=== PATIENT | female | born 1975 | race Caucasian/White ===

== ENCOUNTER 2017-01-23 15:54 | Emergency (ER) | payer MEDICAID ==
[2017-01-23 16:03] VITALS: BP 130/76
[2017-01-23] MEDS ORDERED: guaiFENesin/Dextromethorphan 100-10 MG/5 ML Soln 5 ML Cup PO ONE (16:28)
--- NOTE | 2017-01-23 16:57 | EDM.PDOC ---
ED HISTORY OF PRESENT ILLNESS - General Chief Complaint: ENT Problem Stated Complaint: DEEP, VANESSA COUGH Time Seen by Provider: 01/23/17 16:30 Source of Information: Reports: Patient History Limitations: Reports: No limitations - History of Present Illness INITIAL COMMENTS - FREE TEXT/NARRATIVE: Pt states that she woke up today with constant coughing. States that she did multiple breathing treatments with no relief. c/o congestion as well Symptom Onset Date: 01/23/17 Timing/Duration: Reports: Getting worse Severity: mild Improves with: Reports: None - Related Data Allergies/ADRs: Allergies Allergy/AdvReac Type Severity Reaction Status Date / Time amoxicillin [From Augmentin] Allergy Cannot Verified 01/23/17 16:04 Remember clavulanic acid Allergy Cannot Verified 01/23/17 16:04 [From Augmentin] Remember levofloxacin [From Levaquin] Allergy Cannot Verified 01/23/17 16:04 Remember Home Meds: Home Meds Albuterol [Proventil HFA] 1 puff PO PRN 01/23/17 [History] Vits #90/Iron Fum/FA [ Formula] 1 tab PO DAILY 01/23/17 [ History] Past Medical History Gastrointestinal History: Reports: GERD 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: - Past Surgical History HEENT Surgical History: Reports: Oral surgery Female Surgical History: Reports: section, Other (see below) Other Female Surgeries/Procedures: hemrrhoid removed Musculoskeletal Surgical History: Reports: Other (see below) Other Musculoskeletal Surgeries/Procedures:: right thumb Social & Family History - Family History Family Medical History: Noncontributory - Tobacco Use Smoking Status *Q: Current Every Day Smoker Years of Tobacco use: 20 Packs/Tins Daily: 1 - Caffeine Use Caffeine Use: Reports: Coffee - Recreational Drug Use Recreational Drug Use: No - Living Situation & Occupation Living situation: Reports: ED ROS GENERAL - Review of Systems Review Of Systems: See Below HEENT: Reports: Rhinitis, Sinus problem Respiratory: Reports: Cough ED EXAM, GENERAL - Physical Exam Exam: See Below Exam Limited By: No limitations General Appearance: alert, WD/WN, no apparent distress Ears: normal external exam, normal canal, hearing grossly normal Ear Exam: left ear: TM dull (effusion mild) Nose: normal inspection, no blood, clear rhinorrhea, other (enalrge turnbinate on left) Throat/Mouth: Normal inspection, Normal lips, Normal teeth, Normal gums, Normal voice, No airway compromise, Other (erythema to throat) Respiratory/Chest: no respiratory distress, normal breath sounds, no accessory muscle use, chest non-tender, wheezing (minimal) Cardiovascular: normal peripheral pulses, regular rate, rhythm, no edema, no gallop, no JVD, no murmur, no rub Neurological: alert, oriented, CN II-XII intact, normal cognition, normal gait, normal reflexes, no motor/sensory deficits Course - Vital Signs Last Recorded V/S: Last Vital Signs Temp 98.7 F 01/23/17 16:00 Pulse 94 01/23/17 16:00 Resp 18 01/23/17 16:00 BP 130/76 01/23/17 16:00 Pulse Ox 92 L 01/23/17 16:00 - Orders/Labs/Meds Orders: Active Orders 24 hr Category Date Time Status CULTURE STREP A CONFIRMATION [RM] Stat Lab 01/23/17 16:19 Results STREP SCRN A RAPID W CULT CONF [RM] Stat Lab 01/23/17 16:19 Results Meds: Medications Discontinued Medications Generic Name Dose Route Start Last Admin Trade Name Benq PRN Reason Stop Dose Admin Guaifenesin/Phenylephrine HCl 10 ml 01/23/17 16:28 01/23/17 16:34 Robitussin Dm PO 01/23/17 16:29 10 ml ONETIME ONE Administration - Re-Assessments/Exams Free Text/Narrative Re-Assessment/Exam: 01/23/17 16:53 Coughing decreased after medication. Pt states that she feels better. Departure - Departure Time of Disposition: 16:54 Disposition: Home, Self-Care 01 Condition: good Clinical Impression: Bronchitis, Sinus congestion Instructions: Sinusitis, Adult, [id number], Acute Bronchitis Forms: ED Department Discharge Additional Instructions: Take the claritin daily for allergies. Take the dextromethorphan and guaifenisen for cough as needed. Follow up in the clinic if not getting better in 1 week. Return for worsening symptoms. - My Orders Last 24 Hours: My Active Orders 01/23/17 16:19 CULTURE STREP A CONFIRMATION [RM] Stat STREP SCRN A RAPID W CULT CONF [RM] Stat - Assessment/Plan Last 24 Hours: My Active Orders 01/23/17 16:19 CULTURE STREP A CONFIRMATION [RM] Stat STREP SCRN A RAPID W CULT CONF [RM] Stat
== END 2017-01-23 17:00 | disposition home or self-care (01) ==
LOC: DL.ED 15:54
DX: J40 Bronchitis, not specified as acute or chronic (principal); K21.9 Gastro-esophageal reflux disease without esophagitis; F17.210 Nicotine dependence, cigarettes, uncomplicated; Z98.890 Other specified postprocedural states; Z88.1 Allergy status to other antibiotic agents
CPT/HCPCS: 87081; 87430; 99283; A9270

== ENCOUNTER 2020-09-05 11:57 | Emergency (ER) | payer MEDICAID ==
[2020-09-05 12:15] VITALS: BP 182/104; PULSE 81
--- NOTE | 2020-09-05 13:01 | CR ---
PROCEDURE INFORMATION: Exam: XR Ribs, Bilateral Exam date and time: 09/05/2020 12:27 PM Age: 44 years old Clinical indication: Chest wall pain; Left; Additional info: B/l rib pain S/P fall TECHNIQUE: Imaging protocol: XR of the bilateral ribs. Views: 3 views. COMPARISON: CR Chest 2V 06/09/2015 1:32 PM FINDINGS: Bones/joints: Healed bilateral rib fractures. No acute fracture identified. Soft tissues: Normal. IMPRESSION: No acute findings.
[2020-09-05] MEDS ORDERED: Lidocaine 5% Oint 35.44 GM Tube TOP ONE (13:07)
--- NOTE | 2020-09-05 13:10 | EDM.PDOC ---
Scribed by Joana Yeboah 09/05/20 1228 for Andres Yuan MD ED HPI GENERAL MEDICAL PROBLEM - General Chief Complaint: Chest Pain Stated Complaint: left breast pain Time Seen by Provider: 09/05/20 12:19 Source of Information: Reports: Patient, RN, RN Notes Reviewed History Limitations: Reports: No Limitations - History of Present Illness INITIAL COMMENTS - FREE TEXT/NARRATIVE: Patient presents to ED by POV with complaint of left breast tenderness. Patient states that this started 4 days ago. Patient states that a few weeks ago she fell on a car battery and injured her right side. Patient is unsure if the 2 events are related. Patient states that she thinks she may have pulled a muscle. She did not notice the left chest wall pain until the right sided pain began to improve. Patient rates pain at a 4/10. Patient has not taken anything for pain. Onset: Gradual Duration: Getting Worse Location: Reports: Chest (left) Quality: Reports: Ache Severity: Moderate Improves with: Reports: None Worsens with: Reports: None Associated Symptoms: Reports: No Other Symptoms Left Breast Pain Score (Numeric/FACES): 4 - Related Data Allergies Allergy/AdvReac Type Severity Reaction Status Date / Time amoxicillin [From Augmentin] Allergy Cannot Verified 09/05/20 12:10 Remember clavulanic acid Allergy Cannot Verified 09/05/20 12:10 [From Augmentin] Remember levofloxacin [From Levaquin] Allergy Cannot Verified 09/05/20 12:10 Remember Home Meds: Home Meds Albuterol [Proventil HFA] 1 puff PO PRN 01/23/17 [History] Vit 90/Iron Fum/Folic [ Formula] 1 tab PO DAILY 01/23/17 [History] Past Medical History Gastrointestinal History: Reports: GERD 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 ED EXAM, GENERAL - Physical Exam Exam: See Below Exam Limited By: No Limitations General Appearance: Alert, WD/WN, No Apparent Distress Nose: Normal Inspection Throat/Mouth: Normal Inspection, Normal Voice, No Airway Compromise Head: Atraumatic, Normocephalic Neck: Normal Inspection, Supple, Non-Tender, Full Range of Motion Respiratory/Chest: No Respiratory Distress, Lungs Clear, Normal Breath Sounds, No Accessory Muscle Use, Other (left chest wall tenderness at middle anterior and lateral chest wall, no visible swelling, bruising, or deformity). No: Crackles, Rales, Rhonchi, Wheezing, Stridor Cardiovascular: Normal Peripheral Pulses, Regular Rate, Rhythm GI/Abdominal: Normal Bowel Sounds, Soft, Non-Tender, No Organomegaly, No Distention, No Abnormal Bruit, No Mass Back Exam: Normal Inspection, Full Range of Motion. No: CVA Tenderness (L), CVA Tenderness (R) Extremities: Normal Inspection, Normal Range of Motion, Non-Tender, Normal Capillary Refill, No Pedal Edema Neurological: Alert, Oriented, CN II-XII Intact, Normal Cognition, Normal Gait, No Motor/Sensory Deficits Psychiatric: Normal Mood Skin Exam: Warm, Dry, Intact, Normal Color, No Rash Lymphatic: No Adenopathy Course - Vital Signs Last Recorded V/S: Last Vital Signs Temp 98.1 F 09/05/20 12:14 Pulse 81 09/05/20 12:14 Resp 16 09/05/20 12:14 BP 182/104 H 09/05/20 12:14 Pulse Ox 98 09/05/20 12:14 - Orders/Labs/Meds Orders: Active Orders 24 hr Category Date Time Status Lidocaine 5% Med 09/05/20 13:07 Once 30 gm TOP ONETIME ONE - Radiology Interpretation Free Text/Narrative:: [facility] [place] [facility] Final Radiology Report Call: [phone] assistance Online chat: [email or web address] Name: LAUREN CARNES Age: 44Years F Date: 09/05/2020 SSN: -- : [id number] Study: CR RIBS 3V WO CHEST BI Requesting Physician: ANDRES YUAN Images: 4 Addl Studies: Provided Clinical History: B/L rib pain s/p fall Contrast: Contrast Medium: Contrast Amount: Contrast Method: CONFIDENTIALITY STATEMENT This report is intended only for use by the referring physician, and only in accordance with law. If you received this in error, call [phone]. Page 1 of 1 PROCEDURE INFORMATION: Exam: XR Ribs, Bilateral Exam date and time: 09/05/2020 12:27 PM Age: 44 years old Clinical indication: Chest wall pain; Left; Additional info: B/l rib pain S/P fall TECHNIQUE: Imaging protocol: XR of the bilateral ribs. Views: 3 views. COMPARISON: CR Chest 2V 06/09/2015 1:32 PM FINDINGS: Bones/joints: Healed bilateral rib fractures. No acute fracture identified. Soft tissues: Normal. IMPRESSION: No acute findings. Thank you for allowing us to participate in the care of your patient. Dictated and Authenticated by: Shin Leo MD 09/05/2020 1:01 PM Central Time ([place] & [place]) Departure - Departure Time of Disposition: 13:07 Disposition: Home, Self-Care 01 Condition: Good Clinical Impression: Multiple fractures of ribs, left side, initial encounter for closed fracture Instructions: Rib Fracture, [id number] Forms: ED Department Discharge Additional Instructions: Apply a thin layer of Lidocaine 5% ointment every 4 hours as needed for pain. Use over the counter Ibuprofen (Motrin/Advil) 200mg: Take 3 tablets (600mg) by mouth with food every 6 hours as needed for chest wall/rib pain. Sepsis Event Note (ED) - Evaluation Sepsis Screening Result: No Definite Risk - Focused Exam Vital Signs: Vital Signs Temp Pulse Resp BP Pulse Ox 09/05/20 12:14 98.1 F 81 16 182/104 H 98 - My Orders Last 24 Hours: My Active Orders 09/05/20 13:07 Lidocaine 5% 30 gm TOP ONETIME ONE - Assessment/Plan Last 24 Hours: My Active Orders 09/05/20 13:07 Lidocaine 5% 30 gm TOP ONETIME ONE I have read and agree with the documentation that has been completed regarding this visit. By signing this record, I attest that the documentation was c ompleted in my physical presence and is an accurate record of the encounter.
== END 2020-09-05 13:16 | disposition home or self-care (01) ==
LOC: DL.ED 11:57
DX: S22.42XA Multiple fractures of ribs, left side, initial encounter for closed fracture (principal); S20.212A Contusion of left front wall of thorax, initial encounter; Z88.1 Allergy status to other antibiotic agents; W20.8XXA Other cause of strike by thrown, projected or falling object, initial encounter
CPT/HCPCS: 71110; 99283; A9270

== ENCOUNTER 2020-11-10 18:35 | Emergency (ER) | payer MEDICAID ==
[2020-11-10] MEDS ORDERED: Ondansetron 4 MG Tab.DIS PO ONE (18:36)
[2020-11-10 19:01] VITALS: BP 151/112; PULSE 95
[2020-11-10] MEDS ORDERED: Sodium Chloride 0.9% 1,000 ML IV ONE (19:10)
[2020-11-10] MEDS ORDERED: Ondansetron 4 MG/2 ML SDV IVPUSH ONE (19:11)
--- NOTE | 2020-11-10 19:17 | EDM.PDOC ---
ED HPI GENERAL MEDICAL PROBLEM - General Chief Complaint: Abdominal Pain Stated Complaint: STOMACH PAIN, VOMITING, DIAHRREA, CHILLS Time Seen by Provider: 11/10/20 19:08 Source of Information: Reports: Patient History Limitations: Reports: No Limitations - History of Present Illness INITIAL COMMENTS - FREE TEXT/NARRATIVE: This 44 yo female patient reports to the ED with a 2 day history of nausea/vomiting, diarrhea and abdominal pain. The patient has been attempting to control her symptoms at home, but her symptoms have been getting worse. The patient denies any recent drug or alcohol use. The patient reports her had a Vasectomy, so she does not believe she is . Onset Date: 11/08/20 Duration: Constant, Getting Worse Location: Reports: Abdomen Quality: Reports: Ache, Dull Severity: Moderate Improves with: Reports: None Worsens with: Reports: None Context: Reports: Other Associated Symptoms: Reports: Nausea/Vomiting Abdominal Pain Score (Numeric/FACES): 7 - Related Data Allergies Allergy/AdvReac Type Severity Reaction Status Date / Time amoxicillin [From Augmentin] Allergy Cannot Verified 11/10/20 18:57 Remember clavulanic acid Allergy Cannot Verified 11/10/20 18:57 [From Augmentin] Remember levofloxacin [From Levaquin] Allergy Cannot Verified 11/10/20 18:57 Remember Home Meds: Home Meds Albuterol [Proventil HFA] 1 puff PO Q4H PRN 01/23/17 [History] Past Medical History Gastrointestinal History: Reports: 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: - Infectious Disease History Infectious Disease History: Reports: None - Past Surgical History HEENT Surgical History: Reports: Oral Surgery Female Surgical History: Reports: Section, Other (See Below) Other Female Surgeries/Procedures: hemrrhoid removed Musculoskeletal Surgical History: Reports: Other (See Below) Other Musculoskeletal Surgeries/Procedures:: right thumb Social & Family History - Family History Family Medical History: No Pertinent Family History - Tobacco Use Tobacco Use Status *Q: Never Tobacco User Second Hand Smoke Exposure: No - Caffeine Use Caffeine Use: Reports: None - Recreational Drug Use Recreational Drug Use: No - Living Situation & Occupation Living situation: Reports: ED ROS GENERAL - Review of Systems Review Of Systems: Comprehensive ROS is negative, except as noted in HPI. ED EXAM, GI/ABD - Physical Exam Exam: See Below Exam Limited By: No Limitations General Appearance: Alert, WD/WN, Moderate Distress Eyes: Bilateral: Normal Appearance, EOMI Ears: Normal External Exam, Normal Canal, Hearing Grossly Normal, Normal TMs Nose: Normal Inspection, Normal Mucosa, No Blood Throat/Mouth: Normal Inspection, Normal Lips, Normal Teeth, Normal Gums, Normal Oropharynx, Normal Voice, No Airway Compromise Head: Atraumatic, Normocephalic Neck: Normal Inspection, Supple, Non-Tender, Full Range of Motion Respiratory/Chest: No Respiratory Distress, Lungs Clear, Normal Breath Sounds, No Accessory Muscle Use, Chest Non-Tender Cardiovascular: Normal Peripheral Pulses, Regular Rate, Rhythm, No Edema, No Gallop, No JVD, No Murmur, No Rub GI/Abdominal Exam: Normal Bowel Sounds, Soft, Non-Tender, No Organomegaly, No Distention, No Abnormal Bruit, No Mass, Pelvis Stable (Female) Exam: Deferred Rectal (Female) Exam: Deferred Back Exam: Normal Inspection, Full Range of Motion, NT Extremities: Normal Inspection, Normal Range of Motion, Non-Tender, Normal Capillary Refill, No Pedal Edema Neurological: Alert, Oriented, CN II-XII Intact, Normal Cognition, Normal Gait, Normal Reflexes, No Motor/Sensory Deficits Psychiatric: Normal Affect, Normal Mood Skin Exam: Warm, Dry, Intact, Normal Color, No Rash Lymphatic: No Adenopathy Course - Vital Signs Last Recorded V/S: Last Vital Signs Temp 36.1 C 11/10/20 18:57 Pulse 95 11/10/20 18:57 Resp 20 11/10/20 18:57 BP 151/112 H 11/10/20 18:57 Pulse Ox 100 11/10/20 18:57 - Orders/Labs/Meds Orders: Active Orders 24 hr Category Date Time Status Sodium Chloride 0.9% [Normal Saline] 1,000 ml Med 11/10/20 19:10 Ordered IV .BOLUS Medication Orders Sodium Chloride (Normal Saline) 1,000 mls @ 500 mls/hr IV .BOLUS ONE Stop: 11/10/20 21:09 Last Admin: 11/10/20 19:22 Dose: 500 mls/hr Documented by: CRYSTAL Labs: Laboratory Tests 11/10/20 11/10/20 11/10/20 Range/Units 19:06 19:06 19:12 WBC 10.2 H (5.0-10.0) 10^3/uL RBC 5.77 H (4.2-5.4) 10^6/uL Hgb 17.8 H (12.0-16.0) g/dL Hct 48.9 H (37.0-47.0) % MCV 84.7 (80-100) fL MCH 30.8 (27.0-34.0) pg MCHC 36.4 H (33.0-35.0) g/dL Plt Count 181 (150-450) 10^3/uL Neut % (Auto) 84.6 H (42.2-75.2) % Lymph % (Auto) 7.8 L (20.5-50.1) % [place] % (Auto) 7.1 (2-8) % Eos % (Auto) 0.4 L (1.0-3.0) % Baso % (Auto) 0.1 (0.0-1.0) % Sodium 136 (136-145) mmol/L Potassium 3.7 (3.5-5.1) mmol/L Chloride 96 L (98-107) mmol/L Carbon Dioxide 22 (21-32) mmol/L Anion Gap 21.7 H (7-13) mEq/L BUN 11 (7-18) mg/dL Creatinine 0.86 (0.55-1.02) mg/dL Est Cr Clr Drug Dosing 75.12 mL/min Estimated GFR (MDRD) > 60 BUN/Creatinine Ratio 12.8 (No establ ref range) Glucose 158 H (74-99) mg/dL Calcium 9.4 (8.5-10.1) mg/dL Total Bilirubin 0.5 (0.2-1.0) mg/dL AST 26 (15-37) U/L ALT 47 (14-59) U/L Alkaline Phosphatase 89 (46-116) U/L Total Protein 8.1 (6.4-8.2) g/dL Albumin 4.4 (3.4-5.0) g/dL Globulin 3.7 Albumin/Globulin Ratio 1.2 Lipase 90 (73-393) U/L Urine Color (YELLOW) Urine Appearance (CLEAR) Urine pH (5.0-9.0) Ur Specific [place] (1.005-1.030) Urine Protein (NEGATIVE) Urine Glucose (UA) (NEGATIVE) Urine Ketones (NEGATIVE) Urine Occult Blood (NEGATIVE) Urine Nitrite (NEGATIVE) Urine Bilirubin (NEGATIVE) Urine Urobilinogen (0.2-1.0) mg/dL Ur Leukocyte Esterase (NEGATIVE) Urine RBC /HPF Urine WBC (0-5/HPF) /HPF Ur Epithelial Cells (NOT SEEN) /HPF Amorphous Sediment (NOT SEEN) /HPF Urine Bacteria (0-FEW/HPF) /HPF Urine Mucus (NOT SEEN) /LPF Urine HCG, Qual Urine Opiates Screen (NEGATIVE) Ur Oxycodone Screen (NEGATIVE) Urine Methadone Screen (NEGATIVE) Ur Barbiturates Screen (NEGATIVE) U Tricyclic Antidepress (NEGATIVE) Ur Phencyclidine Scrn (NEGATIVE) Ur Amphetamine Screen (NEGATIVE) U Methamphetamines Scrn (NEGATIVE) Urine MDMA Screen (NEGATIVE) U Benzodiazepines Scrn (NEGATIVE) Urine Cocaine Screen (NEGATIVE) U Marijuana (THC) Screen (NEGATIVE) Ethyl Alcohol < 3 (0) mg/dL Influenza Type A RNA Negative (NEGATIVE) Influenza Type B RNA Negative (NEGATIVE) SARS-CoV-2 RNA ([place]) Negative (NEGATIVE) 11/10/20 11/10/20 11/10/20 Range/Units 19:19 19:19 19:19 WBC (5.0-10.0) 10^3/uL RBC (4.2-5.4) 10^6/uL Hgb (12.0-16.0) g/dL Hct (37.0-47.0) % MCV (80-100) fL MCH (27.0-34.0) pg MCHC (33.0-35.0) g/dL Plt Count (150-450) 10^3/uL Neut % (Auto) (42.2-75.2) % Lymph % (Auto) (20.5-50.1) % [place] % (Auto) (2-8) % Eos % (Auto) (1.0-3.0) % Baso % (Auto) (0.0-1.0) % Sodium (136-145) mmol/L Potassium (3.5-5.1) mmol/L Chloride (98-107) mmol/L Carbon Dioxide (21-32) mmol/L Anion Gap (7-13) mEq/L BUN (7-18) mg/dL Creatinine (0.55-1.02) mg/dL Est Cr Clr Drug Dosing mL/min Estimated GFR (MDRD) BUN/Creatinine Ratio (No establ ref range) Glucose (74-99) mg/dL Calcium (8.5-10.1) mg/dL Total Bilirubin (0.2-1.0) mg/dL AST (15-37) U/L ALT (14-59) U/L Alkaline Phosphatase (46-116) U/L Total Protein (6.4-8.2) g/dL Albumin (3.4-5.0) g/dL Globulin Albumin/Globulin Ratio Lipase (73-393) U/L Urine Color Yellow (YELLOW) Urine Appearance Slightly cloudy (CLEAR) Urine pH 6.0 (5.0-9.0) Ur Specific [place] 1.025 (1.005-1.030) Urine Protein 100 H (NEGATIVE) Urine Glucose (UA) Negative (NEGATIVE) Urine Ketones 80 H (NEGATIVE) Urine Occult Blood Trace-lysed H (NEGATIVE) Urine Nitrite Negative (NEGATIVE) Urine Bilirubin Negative (NEGATIVE) Urine Urobilinogen 0.2 (0.2-1.0) mg/dL Ur Leukocyte Esterase Negative (NEGATIVE) Urine RBC 10-20 H /HPF Urine WBC 0-5 (0-5/HPF) /HPF Ur Epithelial Cells Many H (NOT SEEN) /HPF Amorphous Sediment Moderate H (NOT SEEN) /HPF Urine Bacteria Few (0-FEW/HPF) /HPF Urine Mucus Few H (NOT SEEN) /LPF Urine HCG, Qual Negative Urine Opiates Screen Negative (NEGATIVE) Ur Oxycodone Screen Negative (NEGATIVE) Urine Methadone Screen Negative (NEGATIVE) Ur Barbiturates Screen Negative (NEGATIVE) U Tricyclic Antidepress Negative (NEGATIVE) Ur Phencyclidine Scrn Negative (NEGATIVE) Ur Amphetamine Screen Negative (NEGATIVE) U Methamphetamines Scrn Negative (NEGATIVE) Urine MDMA Screen Negative (NEGATIVE) U Benzodiazepines Scrn Negative (NEGATIVE) Urine Cocaine Screen Negative (NEGATIVE) U Marijuana (THC) Screen Positive H (NEGATIVE) Ethyl Alcohol (0) mg/dL Influenza Type A RNA (NEGATIVE) Influenza Type B RNA (NEGATIVE) SARS-CoV-2 RNA ([place]) (NEGATIVE) Meds: Medications Generic Name Dose Route Start Last Admin Trade Name Freq PRN Reason Stop Dose Admin Sodium Chloride 1,000 mls @ 500 mls/hr 11/10/20 19:10 11/10/20 19:22 Normal Saline IV 11/10/20 21:09 500 mls/hr .BOLUS ONE Administration Discontinued Medications Generic Name Dose Route Start Last Admin Trade Name Tammy PRN Reason Stop Dose Admin Iopamidol 100 ml 11/10/20 20:08 11/10/20 20:48 Isovue-300 (61%) IVPUSH 11/10/20 20:09 75 ml ONETIME ONE Administration Ondansetron HCl 4 mg 11/10/20 19:11 11/10/20 19:22 Zofran IVPUSH 11/10/20 19:12 4 mg ONETIME ONE Administration Departure - Departure Time of Disposition: 21:07 Disposition: Home, Self-Care 01 Condition: Fair Clinical Impression: Gastroenteritis - Discharge Information *PRESCRIPTION DRUG MONITORING PROGRAM REVIEWED*: Not Applicable *COPY OF PRESCRIPTION DRUG MONITORING REPORT IN PATIENT JOYCE: Not Applicable Instructions: Viral Gastroenteritis, Adult, [id number] Forms: ED Department Discharge Care Plan Goals: The patient was advised of the examination, lab and CT results during the visit. The patient was given IV fluids and an IV dose of Zofran while in the ED. The patient was discharged with Zofran ODT (4 mg) #2 to take 1 by mouth every 6 hours as needed for nausea and a script for Zofran (4 mg) #20 to take 1 by mouth every 6 hours as needed. If the patient has any additional symptoms or concerns, the patient should either return to the emergency department or visit her primary care facility. Sepsis Event Note (ED) - Evaluation Sepsis Screening Result: No Definite Risk - Focused Exam Vital Signs: Vital Signs Temp Pulse Resp BP Pulse Ox 11/10/20 18:57 36.1 C 95 20 151/112 H 100 - My Orders Last 24 Hours: My Active Orders 11/10/20 19:10 Sodium Chloride 0.9% [Normal Saline] 1,000 ml IV .BOLUS - Assessment/Plan Last 24 Hours: My Active Orders 11/10/20 19:10 Sodium Chloride 0.9% [Normal Saline] 1,000 ml IV .BOLUS
[2020-11-10 19:33] LABS: ANION GAP 21.7 mEq/L (7-13); CHLORIDE,CL 96 mmol/L (98-107); SODIUM,NA 136 mmol/L (136-145)
[2020-11-10 20:03] LABS: CORONAVIRUS COVID-19 NAA NEGATIVE (NEGATIVE)
[2020-11-10] MEDS ORDERED: Iopamidol 612 MG/ML 100 ML Bottle IVPUSH ONE (20:08)
--- NOTE | 2020-11-10 21:00 | CT ---
PROCEDURE INFORMATION: Exam: CT Abdomen And Pelvis With Contrast Exam date and time: 11/10/2020 8:25 PM Age: 44 years old Clinical indication: Other: Abdominal pain (wbc - 10.2), nausea/vomiting/diarr TECHNIQUE: Imaging protocol: Computed tomography of the abdomen and pelvis with intravenous contrast. Total images: 253 Radiation optimization: All CT scans at this facility use at least one of these dose optimization techniques: automated exposure control; mA and/or kV adjustment per patient size (includes targeted exams where dose is matched to clinical indication); or iterative reconstruction. Contrast material: ISOVUE 300; Contrast volume: 75 ml; Contrast route: INTRAVENOUS (IV); COMPARISON: No relevant prior studies available. FINDINGS: Liver: Normal. No mass. Gallbladder and bile ducts: Normal. No calcified stones. No ductal dilation. Pancreas: Normal. No ductal dilation. Spleen: Normal. No splenomegaly. Adrenal glands: Normal. No mass. Kidneys and ureters: Tiny hypodensity medial right kidney probably a tiny cyst. Stomach and bowel: Colon is fluid-filled. Suggestion of minimal wall thickening rectosigmoid colon. In multiple loops of distal small bowel in the lower abdomen show wall thickening with some enhancement. There is associated adjacent mesenteric stranding. Appendix: No evidence of appendicitis. Intraperitoneal space: Small to moderate amount of fluid within the deep pelvis. Vasculature: Unremarkable. No abdominal aortic aneurysm. Lymph nodes: Unremarkable. No enlarged lymph nodes. Urinary bladder: Unremarkable as visualized. Reproductive: Unremarkable as visualized. Bones/joints: Degenerative changes at lower lumbar levels. Associated minimal anterolisthesis of L4 on L5. Soft tissues: Tiny umbilical hernia containing fat. IMPRESSION: 1. Multiple loops of inflamed distal small bowel with associated mesenteric inflammation/stranding compatible with an acute enteritis. There may be a component of colitis as well. 2. Small to moderate amount of fluid within the deep pelvis. 3. See above for other details. COMMENTS: Consistent with the [employer]'s Incidental Findings Committee white paper (J Am Melissa Radiol 2018): Any incidental renal lesion less than 1 cm or classified as too small to characterize, or any incidental cystic renal lesion characterized as simple-appearing, is likely benign. No follow-up imaging is recommended for these lesions per consensus recommendations based on imaging criteria.
[2020-11-10] MEDS ORDERED: Ondansetron 4 MG Tab.DIS ONE (21:18)
== END 2020-11-10 21:27 | disposition home or self-care (01) ==
LOC: DL.ED 18:35
DX: K52.9 Noninfective gastroenteritis and colitis, unspecified (principal); Z20.822 Contact with and (suspected) exposure to COVID-19; Z88.0 Allergy status to penicillin; Z88.1 Allergy status to other antibiotic agents
CPT/HCPCS: 0240U; 36415; 74177; 80053; 80305; 80307; 81001; 81025; 83690; 85025; 96374; 99283; 99284; A9270; J2405; J7030; Q9967

== ENCOUNTER 2020-11-12 16:50 | Emergency (ER) | payer MEDICAID ==
[2020-11-12] MEDS ORDERED: Potassium Chloride 10 MEQ Tab.ER PO ONE ×2 (16:51→20:29)
[2020-11-12] MEDS ORDERED: Sodium Chloride 0.9% 1,000 ML IV ONE (19:40)
[2020-11-12 20:14] LABS: ANION GAP 15.8 mEq/L (7-13); CHLORIDE,CL 97 mmol/L (98-107); SODIUM,NA 134 mmol/L (136-145)
--- NOTE | 2020-11-12 20:38 | EDM.PDOC ---
ED HPI GENERAL MEDICAL PROBLEM - General Chief Complaint: Abdominal Pain Stated Complaint: STOMACH PAIN, VOMITING, SAME PREVIOUS VISIT Time Seen by Provider: 11/12/20 19:40 Source of Information: Reports: Patient History Limitations: Reports: No Limitations - History of Present Illness INITIAL COMMENTS - FREE TEXT/NARRATIVE: Return to ED was seen yesterday for same. Diarrhea, loose watery yellow 5 times today. Feels weak dizzy. Chills no fever. Recent purchase of calves with scours. Other family members ill with same. Relative with purchase of calves from sme seller positive for cryptosporidium and C-diff. 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: - Infectious Disease History Infectious Disease History: Reports: None - Past Surgical History HEENT Surgical History: Reports: Oral Surgery Female Surgical History: Reports: Section, Other (See Below) Other Female Surgeries/Procedures: hemrrhoid removed Musculoskeletal Surgical History: Reports: Other (See Below) Other Musculoskeletal Surgeries/Procedures:: right thumb Social & Family History - Family History Family Medical History: No Pertinent Family History - Tobacco Use Tobacco Use Status *Q: Current Every Day Tobacco User Years of Tobacco use: 30 Packs/Tins Daily: 1 - Caffeine Use Caffeine Use: Reports: Coffee - Recreational Drug Use Recreational Drug Use: Yes Recreational Drug Type: Reports: Marijuana/Hashish - Living Situation & Occupation Living situation: Reports: ED ROS GENERAL - Review of Systems Review Of Systems: Comprehensive ROS is negative, except as noted in HPI. ED EXAM, GI/ABD - Physical Exam Exam: See Below Exam Limited By: No Limitations General Appearance: Alert, No Apparent Distress Eyes: Bilateral: EOMI Ears: Normal External Exam, Hearing Grossly Normal Throat/Mouth: Normal Inspection Head: Atraumatic, Normocephalic Neck: Normal Inspection Respiratory/Chest: No Respiratory Distress, Lungs Clear, Normal Breath Sounds Cardiovascular: Normal Peripheral Pulses, Regular Rate, Rhythm, Tachycardia GI/Abdominal Exam: Abnormal Bowel Sounds (hyperactive). No: Distended, Guarding , Rebound, Tender Extremities: Normal Inspection, Normal Range of Motion Psychiatric: Normal Affect, Normal Mood Skin Exam: Warm, Dry, Intact, Normal Color Course - Vital Signs Last Recorded V/S: Last Vital Signs Temp 97.8 F 11/12/20 20:48 Pulse 78 11/12/20 20:48 Resp 18 11/12/20 20:48 BP 138/73 11/12/20 20:48 Pulse Ox 100 11/12/20 20:48 - Orders/Labs/Meds Orders: Active Orders 24 hr Category Date Time Status CLOSTRIDIUM DIFFICILE TOX RFLX [MREF] Stat Lab 11/12/20 20:48 Received CRYPTOSPORIDIUM BY IMMUNOASSAY [MREF] Stat Lab 11/12/20 20:53 Received CULTURE STOOL [RM] Stat Lab 11/12/20 20:48 Received OVA & PARASITES BY IMMUNOASSAY [MREF] Stat Lab 11/12/20 20:53 Received SHIGA TOXIN 1 & 2 [MREF] Stat Lab 11/12/20 20:48 Received Isolation [COMM] Stat Oth 11/12/20 19:43 Active Labs: Laboratory Tests 11/12/20 11/12/20 Range/Units 19:45 19:45 WBC 8.3 (5.0-10.0) 10^3/uL RBC 5.68 H (4.2-5.4) 10^6/uL Hgb 17.4 H (12.0-16.0) g/dL Hct 47.7 H (37.0-47.0) % MCV 84.0 (80-100) fL MCH 30.6 (27.0-34.0) pg MCHC 36.5 H (33.0-35.0) g/dL Plt Count 143 L (150-450) 10^3/uL Neut % (Auto) 76.1 H (42.2-75.2) % Lymph % (Auto) 9.7 L (20.5-50.1) % [place] % (Auto) 12.6 H (2-8) % Eos % (Auto) 1.5 (1.0-3.0) % Baso % (Auto) 0.1 (0.0-1.0) % Sodium 134 L (136-145) mmol/L Potassium 2.8 L (3.5-5.1) mmol/L Chloride 97 L (98-107) mmol/L Carbon Dioxide 24 (21-32) mmol/L Anion Gap 15.8 H (7-13) mEq/L BUN 13 (7-18) mg/dL Creatinine 0.91 (0.55-1.02) mg/dL Est Cr Clr Drug Dosing 70.99 mL/min Estimated GFR (MDRD) > 60 BUN/Creatinine Ratio 14.3 (No establ ref range) Glucose 105 H (74-99) mg/dL Calcium 8.6 (8.5-10.1) mg/dL Total Bilirubin 0.4 (0.2-1.0) mg/dL AST 36 (15-37) U/L ALT 41 (14-59) U/L Alkaline Phosphatase 79 (46-116) U/L Total Protein 7.7 (6.4-8.2) g/dL Albumin 4.1 (3.4-5.0) g/dL Globulin 3.6 Albumin/Globulin Ratio 1.1 Meds: Medications Discontinued Medications Generic Name Dose Route Start Last Admin Trade Name Freq PRN Reason Stop Dose Admin Sodium Chloride 1,000 mls @ 999 mls/hr 11/12/20 19:40 11/12/20 19:47 Normal Saline IV 11/12/20 20:40 999 mls/hr .BOLUS ONE Administration Potassium Chloride 40 meq 11/12/20 20:29 11/12/20 20:35 Klor-Con 10 PO 11/12/20 20:30 40 meq ONETIME ONE Administration Potassium Chloride Confirm 11/12/20 20:41 Klor-Con 10 Administered 11/12/20 20:42 Dose 20 meq .ROUTE .STK-MED ONE Departure - Departure Time of Disposition: 20:35 Disposition: Home, Self-Care 01 Condition: Good Clinical Impression: Hypokalemia, Dehydration Diarrhea Qualifiers: Diarrhea type: unspecified type Qualified Code(s): R19.7 - Diarrhea, unspecified - Discharge Information *PRESCRIPTION DRUG MONITORING PROGRAM REVIEWED*: No *COPY OF PRESCRIPTION DRUG MONITORING REPORT IN PATIENT JOYCE: No Instructions: Hypokalemia, Dehydration, Adult, [id number] Referrals: Kacey Rodriguez MD [Primary Care Provider] - Forms: ED Department Discharge Additional Instructions: light diet encourage fluids, electrolyte drinks Sepsis Event Note (ED) - Evaluation Sepsis Screening Result: No Definite Risk - Focused Exam Vital Signs: Vital Signs Temp Pulse Resp BP Pulse Ox 11/12/20 20:48 97.8 F 78 18 138/73 100 11/12/20 17:17 97.2 F 124 H 20 165/103 H 100 - My Orders Last 24 Hours: My Active Orders 11/12/20 19:43 Isolation [COMM] Stat 11/12/20 20:48 CLOSTRIDIUM DIFFICILE TOX RFLX [MREF] Stat CULTURE STOOL [RM] Stat SHIGA TOXIN 1 & 2 [MREF] Stat 11/12/20 20:53 CRYPTOSPORIDIUM BY IMMUNOASSAY [MREF] Stat OVA & PARASITES BY IMMUNOASSAY [MREF] Stat - Assessment/Plan Last 24 Hours: My Active Orders 11/12/20 19:43 Isolation [COMM] Stat 11/12/20 20:48 CLOSTRIDIUM DIFFICILE TOX RFLX [MREF] Stat CULTURE STOOL [RM] Stat SHIGA TOXIN 1 & 2 [MREF] Stat 11/12/20 20:53 CRYPTOSPORIDIUM BY IMMUNOASSAY [MREF] Stat OVA & PARASITES BY IMMUNOASSAY [MREF] Stat
[2020-11-12] MEDS ORDERED: Potassium Chloride 10 MEQ Tab.ER ONE (20:41)
[2020-11-12 20:50] VITALS: BP 138/73; PULSE 78
== END 2020-11-12 21:21 | disposition home or self-care (01) ==
LOC: DL.ED 16:50
DX: E87.6 Hypokalemia (principal); E86.0 Dehydration; R19.7 Diarrhea, unspecified; Z88.0 Allergy status to penicillin; Z88.1 Allergy status to other antibiotic agents; Z72.0 Tobacco use
CPT/HCPCS: 36415; 80053; 85025; 87045; 87046; 87328; 87329; 87493; 87899; 99284; A9270; J7030

== ENCOUNTER 2021-02-02 16:50 | Emergency (ER) | payer MEDICAID, OTHER ==
[2021-02-02 17:09] VITALS: BP 174/102; PULSE 80
--- NOTE | 2021-02-02 17:51 | EDM.PDOC ---
Scribed by Joana Yeboah 02/02/21 [id number] for Tj August PA ED HPI GENERAL MEDICAL PROBLEM - General Chief Complaint: Chest Pain Stated Complaint: TIGHTNESS IN CHEST, NO ENERGY, ARMS TINGLE Time Seen by Provider: 02/02/21 17:35 Source of Information: Reports: Patient, RN, RN Notes Reviewed History Limitations: Reports: No Limitations - History of Present Illness INITIAL COMMENTS - FREE TEXT/NARRATIVE: This 45 yo female patient reports to the ED due to a feeling of chest tightness. The patient reports she has been feeling short of energy over the past 2 days with fevers and chills. The patient reports her chest tightness started this afternoon and she began to feel tingling in her arms. The patient does have a history of panic attacks and believes she may have had a panic attack prior to coming to the ED. Onset: Gradual Duration: Day(s):, Constant Location: Reports: Chest Quality: Reports: Other Severity: Moderate Improves with: Reports: None Worsens with: Reports: None Associated Symptoms: Reports: Fever/Chills, Malaise, Shortness of Breath - Related Data Allergies Allergy/AdvReac Type Severity Reaction Status Date / Time amoxicillin [From Augmentin] Allergy Cannot Verified 02/02/21 17:05 Remember clavulanic acid Allergy Cannot Verified 02/02/21 17:05 [From Augmentin] Remember levofloxacin [From Levaquin] Allergy Cannot Verified 02/02/21 17:05 Remember Home Meds: Home Meds Albuterol [Proventil HFA] 1 puff PO Q4H PRN 01/23/17 [History] Past Medical History Gastrointestinal History: Reports: GERD [employer]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: - Infectious Disease History Infectious Disease History: Reports: None - Past Surgical History HEENT Surgical History: Reports: Oral Surgery Female Surgical History: Reports: Section, Other (See Below) Other Female Surgeries/Procedures: hemrrhoid removed Musculoskeletal Surgical History: Reports: Other (See Below) Other Musculoskeletal Surgeries/Procedures:: right thumb Social & Family History - Family History Family Medical History: No Pertinent Family History - Caffeine Use Caffeine Use: Reports: Coffee - Living Situation & Occupation Living situation: Reports: ED ROS GENERAL - Review of Systems Review Of Systems: Comprehensive ROS is negative, except as noted in HPI. ED EXAM, GENERAL - Physical Exam Exam: See Below Exam Limited By: No Limitations General Appearance: Alert, WD/WN, Anxious, Mild Distress Eye Exam: Bilateral Eye: EOMI, Normal Inspection, PERRL Ears: Normal External Exam, Normal Canal, Hearing Grossly Normal, Normal TMs Nose: Normal Inspection, Normal Mucosa, No Blood Throat/Mouth: Normal Inspection, Normal Lips, Normal Teeth, Normal Gums, Normal Oropharynx, Normal Voice, No Airway Compromise Head: Atraumatic, Normocephalic Neck: Normal Inspection, Supple, Non-Tender, Full Range of Motion Respiratory/Chest: No Respiratory Distress, Lungs Clear, Normal Breath Sounds, No Accessory Muscle Use, Chest Non-Tender Cardiovascular: Normal Peripheral Pulses, Regular Rate, Rhythm, No Edema, No Gallop, No JVD, No Murmur, No Rub GI/Abdominal: Normal Bowel Sounds, Soft, Non-Tender, No Organomegaly, No Distention, No Abnormal Bruit, No Mass (Female) Exam: Deferred Rectal (Female) Exam: Deferred Back Exam: Normal Inspection, Full Range of Motion, NT Extremities: Normal Inspection, Normal Range of Motion, Non-Tender, Normal Capillary Refill, No Pedal Edema Neurological: Alert, Oriented, CN II-XII Intact, Normal Cognition, Normal Gait, Normal Reflexes, No Motor/Sensory Deficits Psychiatric: Anxious Skin Exam: Warm, Dry, Intact, Normal Color, No Rash Lymphatic: No Adenopathy #1 Interpretation EKG Date: 02/02/21 Time: 17:05 Rhythm: Other (snus rhythm) Rate (Beats/Min): 66 [place]: Normal P-Wave: Present QRS: Normal ST-T: Normal QT: Normal Course - Vital Signs Last Recorded V/S: Last Vital Signs Temp 37.3 C 02/02/21 17:06 Pulse 80 02/02/21 17:06 Resp 20 02/02/21 17:06 BP 174/102 H 02/02/21 17:06 Pulse Ox 100 02/02/21 17:06 - Orders/Labs/Meds Orders: Active Orders 24 hr Category Date Time Status EKG 12 Lead [EKG Documentation Completion] [RC] STAT Care 02/02/21 17:05 Active Chest 2V [CR] Urgent Exams 02/02/21 19:10 Ordered CULTURE URINE [RM] Stat Lab 02/02/21 18:04 Received Labs: Laboratory Tests 02/02/21 02/02/21 02/02/21 Range/Units 17:30 17:30 18:04 WBC 10.5 H (5.0-10.0) 10^3/uL RBC 5.48 H (4.2-5.4) 10^6/uL Hgb 15.8 D (12.0-16.0) g/dL Hct 45.2 (37.0-47.0) % MCV 82.5 (80-100) fL MCH 28.8 (27.0-34.0) pg MCHC 35.0 (33.0-35.0) g/dL Plt Count 250 D (150-450) 10^3/uL Neut % (Auto) 66.2 (42.2-75.2) % Lymph % (Auto) 25.7 (20.5-50.1) % [place] % (Auto) 6.4 (2-8) % Eos % (Auto) 1.4 (1.0-3.0) % Baso % (Auto) 0.3 (0.0-1.0) % Sodium 140 (136-145) mmol/L Potassium 3.5 (3.5-5.1) mmol/L Chloride 103 (98-107) mmol/L Carbon Dioxide 22 (21-32) mmol/L Anion Gap 18.5 H (7-13) mEq/L BUN 9 (7-18) mg/dL Creatinine 0.90 (0.55-1.02) mg/dL Est Cr Clr Drug Dosing 68.16 mL/min Estimated GFR (MDRD) > 60 BUN/Creatinine Ratio 10.0 (No establ ref range) Glucose 114 H (70-99) mg/dL Calcium 9.3 (8.5-10.1) mg/dL Total Bilirubin 0.5 (0.2-1.0) mg/dL AST 11 L (15-37) U/L ALT 25 (14-59) U/L Alkaline Phosphatase 75 (46-116) U/L Troponin I < 0.017 (0.000-0.056) ng/mL Total Protein 7.4 (6.4-8.2) g/dL Albumin 3.9 (3.4-5.0) g/dL Globulin 3.5 Albumin/Globulin Ratio 1.1 Urine Color Yellow (YELLOW) Urine Appearance Clear (CLEAR) Urine pH 7.0 (5.0-9.0) Ur Specific [place] 1.015 (1.005-1.030) Urine Protein Negative (NEGATIVE) Urine Glucose (UA) Negative (NEGATIVE) Urine Ketones Negative (NEGATIVE) Urine Occult Blood Negative (NEGATIVE) Urine Nitrite Negative (NEGATIVE) Urine Bilirubin Negative (NEGATIVE) Urine Urobilinogen 0.2 (0.2-1.0) mg/dL Ur Leukocyte Esterase Trace H (NEGATIVE) Urine RBC 0-5 /HPF Urine WBC 0-5 (0-5/HPF) /HPF Ur Epithelial Cells Moderate H (NOT SEEN) /HPF Urine Bacteria Few (0-FEW/HPF) /HPF Urine HCG, Qual Urine Opiates Screen (NEGATIVE) Ur Oxycodone Screen (NEGATIVE) Urine Methadone Screen (NEGATIVE) Ur Barbiturates Screen (NEGATIVE) U Tricyclic Antidepress (NEGATIVE) Ur Phencyclidine Scrn (NEGATIVE) Ur Amphetamine Screen (NEGATIVE) U Methamphetamines Scrn (NEGATIVE) Urine MDMA Screen (NEGATIVE) U Benzodiazepines Scrn (NEGATIVE) Urine Cocaine Screen (NEGATIVE) U Marijuana (THC) Screen (NEGATIVE) Influenza Type A RNA (NEGATIVE) Influenza Type B RNA (NEGATIVE) SARS-CoV-2 RNA ([place]) (NEGATIVE) 02/02/21 02/02/21 02/02/21 Range/Units 18:04 18:04 18:05 WBC (5.0-10.0) 10^3/uL RBC (4.2-5.4) 10^6/uL Hgb (12.0-16.0) g/dL Hct (37.0-47.0) % MCV (80-100) fL MCH (27.0-34.0) pg MCHC (33.0-35.0) g/dL Plt Count (150-450) 10^3/uL Neut % (Auto) (42.2-75.2) % Lymph % (Auto) (20.5-50.1) % [place] % (Auto) (2-8) % Eos % (Auto) (1.0-3.0) % Baso % (Auto) (0.0-1.0) % Sodium (136-145) mmol/L Potassium (3.5-5.1) mmol/L Chloride (98-107) mmol/L Carbon Dioxide (21-32) mmol/L Anion Gap (7-13) mEq/L BUN (7-18) mg/dL Creatinine (0.55-1.02) mg/dL Est Cr Clr Drug Dosing mL/min Estimated GFR (MDRD) BUN/Creatinine Ratio (No establ ref range) Glucose (70-99) mg/dL Calcium (8.5-10.1) mg/dL Total Bilirubin (0.2-1.0) mg/dL AST (15-37) U/L ALT (14-59) U/L Alkaline Phosphatase (46-116) U/L Troponin I (0.000-0.056) ng/mL Total Protein (6.4-8.2) g/dL Albumin (3.4-5.0) g/dL Globulin Albumin/Globulin Ratio Urine Color (YELLOW) Urine Appearance (CLEAR) Urine pH (5.0-9.0) Ur Specific [place] (1.005-1.030) Urine Protein (NEGATIVE) Urine Glucose (UA) (NEGATIVE) Urine Ketones (NEGATIVE) Urine Occult Blood (NEGATIVE) Urine Nitrite (NEGATIVE) Urine Bilirubin (NEGATIVE) Urine Urobilinogen (0.2-1.0) mg/dL Ur Leukocyte Esterase (NEGATIVE) Urine RBC /HPF Urine WBC (0-5/HPF) /HPF Ur Epithelial Cells (NOT SEEN) /HPF Urine Bacteria (0-FEW/HPF) /HPF Urine HCG, Qual Negative Urine Opiates Screen Negative (NEGATIVE) Ur Oxycodone Screen Negative (NEGATIVE) Urine Methadone Screen Negative (NEGATIVE) Ur Barbiturates Screen Negative (NEGATIVE) U Tricyclic Antidepress Negative (NEGATIVE) Ur Phencyclidine Scrn Negative (NEGATIVE) Ur Amphetamine Screen Negative (NEGATIVE) U Methamphetamines Scrn Negative (NEGATIVE) Urine MDMA Screen Negative (NEGATIVE) U Benzodiazepines Scrn Negative (NEGATIVE) Urine Cocaine Screen Negative (NEGATIVE) U Marijuana (THC) Screen Positive H (NEGATIVE) Influenza Type A RNA Negative (NEGATIVE) Influenza Type B RNA Negative (NEGATIVE) SARS-CoV-2 RNA ([place]) Negative (NEGATIVE) Departure - Departure Time of Disposition: 19:34 Disposition: Home, Self-Care 01 Condition: Fair Clinical Impression: Viral upper respiratory infection Instructions: Viral Respiratory Infection, [id number] Forms: ED Department Discharge Care Plan Goals: The patient was advised of the examination, lab and x-ray results during the visit. The patient was encourage to take over the counter medications for temporary symptom relief. The patient should continue with her current medications as prescribed. If the patient has any additional symptoms or concerns, the patient should either return to the emergency department or visit her primary care facility. Sepsis Event Note (ED) - Evaluation Sepsis Screening Result: No Definite Risk - Focused Exam Vital Signs: Vital Signs Temp Pulse Resp BP Pulse Ox 02/02/21 17:06 37.3 C 80 20 174/102 H 100 - My Orders Last 24 Hours: My Active Orders 02/02/21 17:05 EKG 12 Lead [EKG Documentation Completion] [RC] STAT 02/02/21 18:04 CULTURE URINE [RM] Stat 02/02/21 19:10 Chest 2V [CR] Urgent - Assessment/Plan Last 24 Hours: My Active Orders 02/02/21 17:05 EKG 12 Lead [EKG Documentation Completion] [RC] STAT 02/02/21 18:04 CULTURE URINE [RM] Stat 02/02/21 19:10 Chest 2V [CR] Urgent I have read and agree with the documentation that has been completed regarding this visit. By signing this record, I attest that the documentation was completed in my physical presence and is an accurate record of the encounter.
[2021-02-02 18:24] LABS: ANION GAP 18.5 mEq/L (7-13); CHLORIDE,CL 103 mmol/L (98-107); SODIUM,NA 140 mmol/L (136-145)
[2021-02-02 18:57] LABS: CORONAVIRUS COVID-19 NAA NEGATIVE (NEGATIVE)
--- NOTE | 2021-02-02 19:53 | CR ---
PROCEDURE INFORMATION: Exam: XR Chest Exam date and time: 02/02/2021 7:18 PM Age: 45 years old Clinical indication: Shortness of breath TECHNIQUE: Imaging protocol: XR of the chest Views: 2 views. COMPARISON: CR Chest 2V 06/09/2015 1:32 PM FINDINGS: Lungs: Unremarkable. No consolidation. Pleural spaces: Unremarkable. No pleural effusion. No pneumothorax. Heart/Mediastinum: Unremarkable. No cardiomegaly. Bones/joints: Unremarkable. IMPRESSION: No acute findings.
== END 2021-02-02 19:55 | disposition home or self-care (01) ==
LOC: DL.ED 16:50
DX: J06.9 Acute upper respiratory infection, unspecified (principal); Z20.822 Contact with and (suspected) exposure to COVID-19; Z88.0 Allergy status to penicillin; Z88.1 Allergy status to other antibiotic agents
CPT/HCPCS: 0240U; 36415; 71046; 80053; 80305-QW; 81001; 81025; 84484; 85025; 87086; 93005; 93010; 99283; 99285-25

== ENCOUNTER 2021-07-07 13:28 | Emergency (ER) | payer MEDICAID ==
[2021-07-07] MEDS ORDERED: Albuterol/Ipratropium 3.0-0.5 MG/3 ML Neb Soln NEB ONE (13:42)
[2021-07-07] MEDS ORDERED: Albuterol 0.083% 2.5 MG/3 ML Neb Soln NEB ONE (13:42)
[2021-07-07] MEDS ORDERED: methylPREDNISolone Sodium Succinate 125 MG/2 ML SDV IM ONE (13:42)
--- NOTE | 2021-07-07 13:47 | EDM.PDOC ---
ED HPI GENERAL MEDICAL PROBLEM - General Stated Complaint: ASTHMA ISSUE Time Seen by Provider: 07/07/21 13:42 Source of Information: Reports: Patient History Limitations: Reports: No Limitations - History of Present Illness INITIAL COMMENTS - FREE TEXT/NARRATIVE: 45 y/o F c/o asthma attack since last night. She reports that she has used her albuterol inhaler 4-5 times since last night and her albuterol nebulizer twice with no relief. She states her breathing has become much more labored in the last hour. She denies cp, abd pn, mckeon, vision prob, extremity pn, fever, cough, chills. 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: Reports: Neurological History: Reports: None Psychiatric History: Reports: None Endocrine/Metabolic History: Reports: None Hematologic History: Reports: None Immunologic History: Reports: None Oncologic (Cancer) History: Reports: None Dermatologic History: Reports: None - Infectious Disease History Infectious Disease History: Reports: None - Past Surgical History Head Surgeries/Procedures: Reports: None HEENT Surgical History: Reports: Oral Surgery Female Surgical History: Reports: Section, Other (See Below) Other Female Surgeries/Procedures: hemrrhoid removed Musculoskeletal Surgical History: Reports: Other (See Below) Other Musculoskeletal Surgeries/Procedures:: right thumb Social & Family History - Family History Family Medical History: No Pertinent Family History - Caffeine Use Caffeine Use: Reports: Coffee - Living Situation & Occupation Living situation: Reports: ED ROS GENERAL - Review of Systems Review Of Systems: Comprehensive ROS is negative, except as noted in HPI. ED EXAM, GENERAL - Physical Exam Exam: See Below Exam Limited By: No Limitations General Appearance: Alert, Mild Distress Eye Exam: Bilateral Eye: PERRL Throat/Mouth: Normal Inspection, Normal Oropharynx, Normal Voice Head: Atraumatic, Normocephalic Neck: Supple Respiratory/Chest: Wheezing, Other (wheezes bilaterally) Cardiovascular: Normal Peripheral Pulses, Regular Rate, Rhythm GI/Abdominal: Soft, Non-Tender (Female) Exam: Deferred Rectal (Female) Exam: Deferred Back Exam: Normal Inspection, Full Range of Motion Extremities: Normal Inspection, No Pedal Edema Neurological: Alert, Oriented, Normal Cognition Psychiatric: Normal Affect, Normal Mood Skin Exam: Warm, Dry, Intact Course - Vital Signs Last Recorded V/S: Last Vital Signs Temp Pulse 85 07/07/21 13:42 Resp BP Pulse Ox 98 07/07/21 13:42 - Orders/Labs/Meds Orders: Active Orders 24 hr Category Date Time Status RT Aerosol Therapy [RC] ASDIRECTED Care 07/07/21 13:42 Active Meds: Medications Discontinued Medications Generic Name Dose Route Start Last Admin Trade Name Freq PRN Reason Stop Dose Admin Albuterol 2.5 mg 07/07/21 13:42 07/07/21 13:47 Albuterol 0.083% 2.5 Mg/3 Ml Neb Soln [facility] 07/07/21 13:43 2.5 mg ONETIME ONE Administration Albuterol/Ipratropium 3 ml 07/07/21 13:42 07/07/21 13:47 Albuterol/Ipratropium 3.0-0.5 Mg/3 Ml Neb Soln NEB 07/07/21 13:43 3 ml ONETIME ONE Administration Methylprednisolone Sodium Succinate 125 mg 07/07/21 13:42 07/07/21 14:03 Methylprednisolone Sodium Succinate 125 Mg/2 Ml Sdv IM 07/07/21 13:43 125 mg ONETIME ONE Administration - Re-Assessments/Exams Free Text/Narrative Re-Assessment/Exam: 07/07/21 14:12 On re-assessment the patient expressed relief in her breathing difficulty. She feels safe and healthy enough to go home. Departure - Departure Time of Disposition: 14:14 Disposition: Home, Self-Care 01 Condition: Good Clinical Impression: Exacerbation of asthma Qualifiers: Asthma severity: mild Asthma persistence: persistent Qualified Code(s): J45.31 - Mild persistent asthma with (acute) exacerbation - Discharge Information *PRESCRIPTION DRUG MONITORING PROGRAM REVIEWED*: Not Applicable *COPY OF PRESCRIPTION DRUG MONITORING REPORT IN PATIENT JOYCE: Not Applicable Instructions: Asthma, Adult, [id number] Additional Instructions: If any new symptoms or concerns develop contact your primary care facility or return to the ER. Sepsis Event Note (ED) - Focused Exam Vital Signs: Vital Signs Pulse Pulse Ox 07/07/21 13:42 85 98
[2021-07-07 14:14] VITALS: BP 131/83; PULSE 88
== END 2021-07-07 14:37 | disposition home or self-care (01) ==
LOC: DL.ED 13:28
DX: J45.31 Mild persistent asthma with (acute) exacerbation (principal); K21.9 Gastro-esophageal reflux disease without esophagitis; Z88.0 Allergy status to penicillin; Z88.1 Allergy status to other antibiotic agents
CPT/HCPCS: 94640; 96372; 99284; J2930; J7613-GY; J7620-GY